=== PATIENT | female | born 1960 | race Caucasian/White ===

== ENCOUNTER → 2025-01-20 11:00 | Outpatient (BNVA) | payer MEDICARE, SELFPAY | PROVIDERS: Referring Provider Family Medicine; Visit Provider Family Medicine | DX: I25.10 Atherosclerotic heart disease of native coronary artery without angina pectoris (principal); I48.0 Paroxysmal atrial fibrillation; E78.00 Pure hypercholesterolemia, unspecified; R00.1 Bradycardia, unspecified; R73.01 Impaired fasting glucose | CPT/HCPCS: 80053; 80061; 83036; 84439; 84443; 85025 ==

== ENCOUNTER 2025-07-07 13:39 | Outpatient (CLI) | payer MEDICARE, SELFPAY ==
--- NOTE | 2025-07-07 14:00 | XR_ITS ---
WS: [id number] SCREENING DEXA SCAN [employer] CLINICAL INFORMATION: postmenopausal COMPARISON: None. FINDINGS: The L1-L4 bone mineral density measures 1.157 g/cm2. This corresponds to a T score score of -0.2 and Z score of 1.1. Left femoral neck bone mineral density measures 0.996 g/cm2. This corresponds to a T score of -0.1 and Z score of 0.9. Right femoral neck bone mineral density measures 0.947 g/cm2. This corresponds to a T score -0.5of and Z score of 0.5. Mean femoral neck bone mineral density measures 0.971 g/cm2. This corresponds to a T score of -0.3 and Z score of 0.7. XR/XR DEXA axial skeleton* [id number] IMPRESSION: Normal bone mineralization. Patient's FRAX calculated 10 year probability for major osteoporotic fracture i s 8.1% and osteoporotic hip fracture is 0.7%.
== END 2025-07-07 13:40 | disposition home or self-care (01) ==
LOC: RAD 13:40
PROVIDERS: PCP Family Medicine; Visit Provider Family Medicine
DX: Z13.820 Encounter for screening for osteoporosis (principal); Z78.0 Asymptomatic menopausal state
CPT/HCPCS: 77080